=== PATIENT | female | born 1980 | race Caucasian/White ===

== ENCOUNTER 2023-08-01 16:55 | Emergency (ER) | payer OTHER ==
[~2023-08-01] VITALS: Ht 170.2 cm; Wt 70.3 kg
[2023-08-01 17:16] VITALS: BP 149/104; TEMP 99.2; O2SAT 100
[2023-08-01] MEDS ORDERED: BENZ-13 PO (17:35)
[2023-08-01] MEDS ORDERED: GUAI118S13 PO (17:35)
== END 2023-08-01 17:42 | disposition home or self-care (01) ==
LOC: ER 16:55
DX: R05.9 Cough, unspecified (principal); Z79.899 Other long term (current) drug therapy

== ENCOUNTER 2024-01-28 20:14 | Emergency (ER) | payer OTHER ==
[~2024-01-28] VITALS: Ht 172.7 cm; Wt 69.4 kg
[~2024-01-28 20:14] MED LIST: BENZ-13 PO; GUAI118S13 PO
[2024-01-28 20:58] VITALS: BP 146/81; TEMP 98; O2SAT 98
== END 2024-01-28 21:25 | disposition home or self-care (01) ==
LOC: ER 20:20
DX: F41.9 Anxiety disorder, unspecified (principal); Z53.21 Procedure and treatment not carried out due to patient leaving prior to being seen by health care provider